=== PATIENT | male | born 1960 | race Caucasian/White ===

== ENCOUNTER 2017-05-28 07:05 | Emergency (ER) | payer BC ==
[2017-05-28 07:23] VITALS: BP 118/86
[2017-05-28] MEDS ORDERED: Amoxicillin/Clavulanate TAB* 875 MG PO ONE (07:29)
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
== END 2017-05-28 08:20 | disposition home or self-care (01) ==
LOC: UCEAST 07:05
DX: S61.451A Open bite of right hand, initial encounter (principal); W55.01XA Bitten by cat, initial encounter; Y92.9 Unspecified place or not applicable
CPT/HCPCS: 99212; A9270-GY; G0463

== ENCOUNTER 2018-08-22 06:41 | Emergency (ER) | payer BC ==
[2018-08-22] MEDS ORDERED: NS 0.9% 1000 ML** 1,000 ML IV ONE (07:19)
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
[2018-08-22 08:13] LABS: ABS Basophils 0.1 10^3/ul (0-0.2); ABS Eosinophils 0.3 10^3/ul (0-0.6); ABS Lymphocytes 1.5 10^3/ul (1.0-4.8); ABS Monocytes 0.5 10^3/ul (0-0.8); ABS Neutrophils 3.3 10^3/ul (1.5-7.7); ABS Nucleated RBC 0 10^3/ul; Hematocrit 44 % (36-46); Lymphocyte % 26.9 %; Mean Corpuscular HGB Conc 34 g/dL (31-36); Mean Corpuscular Hemoglobin 33 pg (27-31); Mean Corpuscular Volume 97 fL (80-94); Mean Platelet Volume 7.5 fL (7.4-10.4); Nucleated Red Blood Cells % 0; Platelet Count 303 10^3/uL (150-450); Red Blood Count 4.58 10^6 /uL (4.18-5.48); Red Cell Distribution Width 14 % (10.5-15); White Blood Count 5.8 10^3/uL (3.5-10.8)
[2018-08-22] MEDS ORDERED: Thiamine TAB* 100 MG TAB PO ONE (08:13)
[2018-08-22 08:33] LABS: ALT 20 U/L (7-52); Albumin 4.5 g/dL (3.2-5.2); Albumin/Globulin Ratio 1.1 (1-3); Alkaline Phosphatase 45 U/L (34-104); BUN/Creatinine Ratio 13.8 (8-20); Blood Urea Nitrogen 12 mg/dL (6-24); C Reactive Protein 2.94 mg/L (<8.01); CO2 Carbon Dioxide 21 mmol/L (22-32); Chloride 104 mmol/L (101-111); EGFR African American 109.8 (>60); EGFR Non-African American 90.8 (>60); Glucose 99 mg/dL (70-100); Sodium 129 mmol/L (135-145); Total Protein 8.5 g/dL (6.4-8.9); Troponin I 0.03 ng/mL (<0.04)
[2018-08-22 08:39] LABS: Alcohol < 10 mg/dL (<10)
[2018-08-22 08:48] LABS: Anion Gap 4 mmol/L (2-11)
[2018-08-22] MEDS ORDERED: Famotidine TAB* 20 MG PO ONE (09:00)
[2018-08-22] MEDS ORDERED: LORazepam INJ* 2 MG/ML 1 ML VIAL IV PUSH ONE (09:00)
[2018-08-22] MEDS ORDERED: Lorazepam PYXIS KEY ONE (09:18)
[2018-08-22 09:22] LABS: Potassium Redraw 4.4 mmol/L (3.5-5.0)
[2018-08-22 10:22] VITALS: BP 167/87
== END 2018-08-22 10:23 | disposition home or self-care (01) ==
LOC: ED 06:41
DX: R42 Dizziness and giddiness (principal); E87.1 Hypo-osmolality and hyponatremia; F17.210 Nicotine dependence, cigarettes, uncomplicated; F41.9 Anxiety disorder, unspecified; Z82.3 Family history of stroke; F32.9 Major depressive disorder, single episode, unspecified
CPT/HCPCS: 36415; 70450; 80053; 80320; 84484; 85025; 86140; 93005; 96361; 96374; 99285; A9270-GY; G0480; J2060

== ENCOUNTER 2018-11-21 07:29 | Inpatient (IN) | payer BC ==
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
[2018-11-21 08:12] LABS: ABS Eosinophils 0.2 10^3/ul (0-0.6); ABS Lymphocytes 1.3 10^3/ul (1.0-4.8); ABS Monocytes 0.7 10^3/ul (0-0.8); ABS Neutrophils 6.1 10^3/ul (1.5-7.7); Eosinophil % 2.4 %; Hematocrit 46 % (42-52); Hemoglobin 15.8 g/dL (14.0-18.0); Lymphocyte % 15.4 %; Mean Corpuscular HGB Conc 35 g/dL (31-36); Mean Corpuscular Hemoglobin 34 pg (27-31); Mean Corpuscular Volume 99 fL (80-94); Mean Platelet Volume 7.8 fL (7.4-10.4); Nucleated Red Blood Cells % 0.1; Platelet Count 248 10^3/uL (150-450); Red Blood Count 4.64 10^6 /uL (4.18-5.48); Red Cell Distribution Width 15 % (10-15); White Blood Count 8.3 10^3/uL (3.5-10.8)
[2018-11-21 08:16] LABS: Urine Appearance Cloudy; Urine Bacteria Absent (Absent); Urine Bilirubin Negative (Negative); Urine Blood 1+ (Negative); Urine Color Yellow; Urine Glucose Negative (Negative); Urine Ketones Trace (Negative); Urine Nitrite Negative (Negative); Urine Protein Negative (Negative); Urine Red Blood Cell Trace(0-2/hpf) (Absent); Urine Specific Gravity 1.009 (1.010-1.030); Urine Urobilinogen Negative (Negative); Urine White Blood Cell Trace(0-5/hpf) (Absent)
[2018-11-21 08:22] LABS: ALT 20 U/L (7-52); AST 27 U/L (13-39); Albumin 4.4 g/dL (3.2-5.2); Albumin/Globulin Ratio 1.2 (1-3); Alkaline Phosphatase 62 U/L (34-104); Anion Gap 9 mmol/L (2-11); BUN/Creatinine Ratio 11.8 (8-20); Blood Urea Nitrogen 13 mg/dL (6-24); CO2 Carbon Dioxide 24 mmol/L (22-32); Calcium 9.5 mg/dL (8.6-10.3); Chloride 105 mmol/L (101-111); EGFR African American 83.8 (>60); EGFR Non-African American 69.2 (>60); Globulin 3.7 g/dL (2-4); Glucose 99 mg/dL (70-100); Potassium 4.2 mmol/L (3.5-5.0); Sodium 138 mmol/L (135-145); Total Protein 8.1 g/dL (6.4-8.9)
[2018-11-21 08:28] LABS: Urine Benzodiazepine Screen None Detected (None Detect); Urine Opiates Screen None Detected (None Detect)
[2018-11-21 08:55] LABS: Acetaminophen < 15 mcg/mL; Alcohol < 10 mg/dL (<10); Salicylate < 2.50 mg/dL (<30)
[2018-11-21] MEDS ORDERED: Acetaminophen TAB* 325 MG PO PRN (08:58)
[2018-11-21] MEDS ORDERED: Al Hydrox/Mg Hydrox/Simet LIQ* 30 ML UDC PO PRN (08:58)
[2018-11-21] MEDS ORDERED: clonazePAM TAB(*) 1 MG PO SCH (09:00)
[2018-11-21] MEDS ORDERED: Venlafaxine EXT RELEASE CAP* 75 MG PO SCH (09:00)
[2018-11-21] MEDS ORDERED: hydrOXYzine HCL TAB* 50 MG PO PRN (09:00)
[2018-11-21 09:09] LABS: TSH (Thyroid Stimulating Horm) 1.06 mcIU/mL (0.34-5.60)
[2018-11-21] MEDS ORDERED: LORazepam TAB(*) 1 MG PO SCH (16:00)
[2018-11-21] MEDS: clonazePAM TAB(*) 0.5 MG PO PRN (17:58)
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
[2018-11-21] MEDS ORDERED: Mirtazapine TAB* 15 MG PO SCH (21:00)
[2018-11-22] MEDS: Thiamine TAB* 100 MG TAB PO SCH (08:13)
[2018-11-22] MEDS: Folic Acid TAB* 1 MG PO SCH (08:13)
[2018-11-22] MEDS: Venlafaxine EXT RELEASE CAP* 75 MG PO SCH (08:14)
[2018-11-22] MEDS: clonazePAM TAB(*) 0.5 MG PO PRN ×3 (08:16→20:18)
--- NOTE | 2018-11-22 12:07 | PN ---
Subjective - Subjective Date of Service: 11/22/18 Service Type: 04053 Hosp care 25 min moderate complexity Subjective: Patient reported active SI to staff during WA assessment and that he was looking for ways to hang himself in his room. He complied with request to remain in milieu. Upon approach, patient sitting in chair with head on table. He reports that he was talking to his , as she visited over lunch. He states that he started discussing going to counseling with his and she reacted angrily stating "you're going to have to talk to your mother. i'm not coming back." He reports frustration that she has not been affectionate or loving for the last 7-8 years and that she has been sleeping in her own bed for the past 3 years. He states frustration that she accuses him of cheating and that this is erroneous. He states that he spends time with friends who also race cars but that he made marriage vows and hold them dear. 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 He reports increase in alcohol use, as this "makes him happy." Objective - General Observations Appearance: Well Groomed Stature: WNL Posture: Slumped Eye Contact: Intermittent Behavior/Activity: Impulsive - Interaction Observations Attitude Towards Examiner: Cooperative Stated Mood: Dysphoric Affect: Full Speech Pattern/Tone: Clear, Appropriate, Normal Volume Thought Process: Circumstantial Perception: WNL Thought Content: Depressive, Self-Deprecatory Thought Process: Lethality: Suicidal Planning Hallucination Type: Denies Delusion Type: Denies - Cognitive Function Orientation: A&O x 4 Level of Consciousness: Alert Cognition: Impaired Attention/Concentration Estimated Intelligence: Normal Insight: Mostly Blames Others for Problems Judgment Within Normal Limits: No Ability to Make Reasonable Decisions: Serverely Impaired - Medication Compliance Cooperative with Inpatient Medication Regimen: Yes - Group Participation Participates in Group Activities: Partial Assessment - Assessment Merits Inpatient Hospitalization: For Immediate Safety, For Stabilization Inpatient DSM-V Dx: F10.14 Clinical Impression: 58yo white male, employed, domiciled, with one adult son, who presented to ED after and interrupted suicide attempt the night prior. He woke in the morning with continued SI and agreed to come to ED with his for evaluation. The patient is minimizing alcohol use and has been hiding it from family members. He merits hospitalization for immediate safety and stabilization. Plan - Plan Treatment Plan: Name: GISEL RABAGO Birthdate: 1960 [id number] continue acute intensive psychiatric treatment. remain on 15min checks. patient to complete SANTIAGO packet. continue [facility] for alcohol detox monitoring. obtain EKG. decrease mirtazapine to 15mg for better sleep effect. continue other medications. discharge planning to include family and outpatient providers. Continued Medication Management: Start Medication Medications: Current Medications Acetaminophen (Tylenol Tab*) 650 mg PO Q4H PRN PRN Reason: for pain; or Temp >101 F Al Hydrox/Mg Hydrox/Simethicone (Maalox Plus*) 30 ml PO Q4H PRN PRN Reason: INDIGESTION Clonazepam (Klonopin Tab(*)) 0.5 mg PO TID PRN PRN Reason: ANXIETY Last Admin: 11/22/18 08:16 Dose: 0.5 mg Folic Acid (Folvite Tab*) 1 mg PO DAILY [facility] Last Admin: 11/22/18 08:13 Dose: 1 mg Hydroxyzine HCl (Atarax Tab*) 50 mg PO Q6H PRN PRN Reason: ANXIETY Last Admin: 11/21/18 13:12 Dose: 50 mg Lorazepam (Ativan Tab(*)) 0 - 6 mg PO .PER [facility] PROTOCOL ADRIAN; Protocol Mirtazapine (Remeron Tab*) 30 mg PO BEDTIME [facility] Last Admin: 11/21/18 20:22 Dose: 30 mg Thiamine HCl (Vitamin B-1 Tab*) 100 mg PO DAILY [facility] Last Admin: 11/22/18 08:13 Dose: 100 mg Venlafaxine HCl (Effexor Xr Cap*) 225 mg PO DAILY [facility] Last Admin: 11/22/18 08:14 Dose: 225 mg - Discharge Plan Discharge Plan: Inpatient Hospitalization
[2018-11-22] MEDS: Mirtazapine TAB* 15 MG PO SCH (20:17)
[2018-11-23 06:59] LABS: HDL Cholesterol 99.5 mg/dL
[2018-11-23] MEDS: Thiamine TAB* 100 MG TAB PO SCH (08:30)
[2018-11-23] MEDS: Folic Acid TAB* 1 MG PO SCH (08:30)
[2018-11-23] MEDS: Venlafaxine EXT RELEASE CAP* 75 MG PO SCH (08:30)
[2018-11-23] MEDS: clonazePAM TAB(*) 0.5 MG PO PRN ×3 (08:32→20:11)
--- NOTE | 2018-11-23 15:10 | PN ---
Subjective - Subjective Date of Service: 11/23/18 Service Type: 31919 Hosp care 15 min low complexity Subjective: Gisel is seen in coverage for Bree Macias NP. Gisel is in an elevated mood and is hopeful about going home. He and his had an argument yesterday and she left in anger. She did return in the evening with Gisel's mother and their relationship still seems solid. Gisel doesn't accept that his drinking is problematic. He understands that he drinks more than is recommended, but he does not think that is a problem for him either psychiatrically or physically. He entered his 72-hour notice today and will likely be discharged tomorrow after a family meeting. Objective - General Observations Appearance: Neat Appears Stated Age: Yes Stature: Overweight Posture: WNL Eye Contact: Average Behavior/Activity: WNL - Interaction Observations Attitude Towards Examiner: Cooperative, Ingratiating Stated Mood: Euthymic Affect: Bright Speech Pattern/Tone: Clear Thought Process: Coherent Perception: WNL Thought Content: WNL Hallucination Type: None Delusion Type: None - Cognitive Function Orientation: A&O x 4 Level of Consciousness: Awake, Alert, Appropriate Cognition: WNL Estimated Intelligence: Normal Insight: Difficulty Acknowledging Presence of Psyciatric Problems Judgment Within Normal Limits: No Ability to Make Reasonable Decisions: Mildly Impaired - Medication Compliance Cooperative with Inpatient Medication Regimen: Yes - Group Participation Participates in Group Activities: Yes Assessment - Assessment Merits Inpatient Hospitalization: For Immediate Safety, For Discharge Planning Inpatient DSM-V Dx: F10.14 Clinical Impression: 58yo white male, employed, domiciled, with one adult son, who presented to ED after and interrupted suicide attempt the night prior. He woke in the morning with continued SI and agreed to come to ED with his for evaluation. The patient is minimizing alcohol use and has been hiding it from family members. He merits hospitalization for immediate safety and stabilization. Plan - Plan Treatment Plan: Name: GISEL RABAGO Birthdate: 1960 [id number] continue acute intensive psychiatric treatment. remain on 15min checks. patient to complete SANTIAG[facility] packet. continue [facility] for alcohol detox monitoring. obtain EKG. decrease mirtazapine to 15mg for better sleep effect. continue other medications. discharge planning to include family and outpatient providers. 11/23/18 discharge planning to continue Social work to arrange family meeting Medications: Current Medications Acetaminophen (Tylenol Tab*) 650 mg PO Q4H PRN PRN Reason: for pain; or Temp >101 F Al Hydrox/Mg Hydrox/Simethicone (Maalox Plus*) 30 ml PO Q4H PRN PRN Reason: INDIGESTION Clonazepam (Klonopin Tab(*)) 0.5 mg PO TID PRN PRN Reason: ANXIETY Last Admin: 11/23/18 12:39 Dose: 0.5 mg Folic Acid (Folvite Tab*) 1 mg PO DAILY [facility] Last Admin: 11/23/18 08:30 Dose: 1 mg Hydroxyzine HCl (Atarax Tab*) 50 mg PO Q6H PRN PRN Reason: ANXIETY Last Admin: 11/21/18 13:12 Dose: 50 mg Mirtazapine (Remeron Tab*) 15 mg PO BEDTIME [facility] Last Admin: 11/22/18 20:17 Dose: 15 mg Thiamine HCl (Vitamin B-1 Tab*) 100 mg PO DAILY [facility] Last Admin: 11/23/18 08:30 Dose: 100 mg Venlafaxine HCl (Effexor Xr Cap*) 225 mg PO DAILY [facility] Last Admin: 11/23/18 08:30 Dose: 225 mg
[2018-11-23] MEDS: Mirtazapine TAB* 15 MG PO SCH (20:11)
[2018-11-24 08:18] VITALS: BP 129/90
[2018-11-24] MEDS: Venlafaxine EXT RELEASE CAP* 75 MG PO SCH (08:20)
[2018-11-24] MEDS: Thiamine TAB* 100 MG TAB PO SCH (08:20)
[2018-11-24] MEDS: Folic Acid TAB* 1 MG PO SCH (08:20)
[2018-11-24] MEDS: clonazePAM TAB(*) 0.5 MG PO PRN (08:21)
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
== END 2018-11-24 11:30 | disposition home or self-care (01) | DRG 775 ==
LOC: ED 07:29 → BSU 08:59
PROVIDERS: ADMIT Psychiatry & Neurology Psychiatry; ATTEND Psychiatry & Neurology Psychiatry
DX: F10.14 Alcohol abuse with alcohol-induced mood disorder (principal); R45.851 Suicidal ideations; J30.2 Other seasonal allergic rhinitis; M46.90 Unspecified inflammatory spondylopathy, site unspecified; F41.9 Anxiety disorder, unspecified; F17.210 Nicotine dependence, cigarettes, uncomplicated; Y90.9 Presence of alcohol in blood, level not specified; F32.9 Major depressive disorder, single episode, unspecified; Z82.49 Family history of ischemic heart disease and other diseases of the circulatory system; Z82.3 Family history of stroke; Z88.1 Allergy status to other antibiotic agents; Z88.8 Allergy status to other drugs, medicaments and biological substances; Z82.61 Family history of arthritis; Z87.891 Personal history of nicotine dependence
CPT/HCPCS: 36415; 80053; 80061; 80307; 80320; 80329; 81003; 81015; 83036; 84443; 85025; 87086; 99222; 99232; 99238; 99284; A9270-GY; G0480

== ENCOUNTER 2019-06-13 11:52 | Emergency (ER) | payer BC ==
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
[2019-06-13] MEDS: NS 0.9% 1000 ML** 1,000 ML IV ONE ×2 (12:12→14:14)
[2019-06-13 12:18] LABS: ABS Eosinophils 0.3 10^3/ul (0-0.6); ABS Lymphocytes 2.2 10^3/ul (1.0-4.8); ABS Neutrophils 3.6 10^3/ul (1.5-7.7); Eosinophil % 4.3 %; Hematocrit 41 % (42-52); Hemoglobin 14.4 g/dL (14.0-18.0); Lymphocyte % 31.1 %; Mean Corpuscular HGB Conc 35 g/dL (31-36); Mean Corpuscular Hemoglobin 35 pg (27-31); Mean Corpuscular Volume 99 fL (80-94); Mean Platelet Volume 7.5 fL (7.4-10.4); Nucleated Red Blood Cells % 0.1; Platelet Count 245 10^3/uL (150-450); Red Blood Count 4.17 10^6 /uL (4.18-5.48); Red Cell Distribution Width 15 % (10-15); White Blood Count 7.1 10^3/uL (3.5-10.8)
[2019-06-13 12:38] LABS: Albumin 4.4 g/dL (3.2-5.2); Albumin/Globulin Ratio 1.3 (1-3); BUN/Creatinine Ratio 11.5 (8-20); Calcium 9.4 mg/dL (8.6-10.3); EGFR African American 74.1 (>60); EGFR Non-African American 61.2 (>60); Globulin 3.4 g/dL (2-4); Potassium 3.7 mmol/L (3.5-5.0); Total Bilirubin 0.5 mg/dL (0.2-1.0); Total Protein 7.8 g/dL (6.4-8.9)
[2019-06-13 12:39] LABS: Troponin I 0.02 ng/mL (<0.03)
--- OUTSIDE RECORDS SUMMARY | 2019-06-13 12:39 | XMS REPORT | Continuity of Care Document ---
:1960 External Reference #:[id number] Author Name Danuta Ho O.D. Address [address] [place] [id number] Care Team Providers Name Role Phone Ranjit Roca M.D. 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 Onset: 06/07/2019 Social History Type Date Description Comments Sex Unknown ETOH Use Occasionally consumes alcohol Tobacco Use Start: Unknown Light tobacco smoker (10 or fewer cigarettes/day) Recreational Drug Use Denies Drug Use Smoking Status Reviewed: 06/07/19 Light tobacco smoker (10 or fewer cigarettes/day) Allergies, Adverse Reactions, Alerts Active Allergies Reaction Severity Comments Date Keflex 06/07/2019 Adhesives 06/07/2019 Medications Active Medications SIG Qnty Indications Ordering Provider Date Desvenlafaxine Succinate one tablet daily Eliot Estrella ER M.D. 100mg Tablets ER 24HR Remeron prn Unknown 30mg Tablets Lorazepam Unknown 1mg Tablets Immunizations Description No Information Available Vital Signs Date Vital Result Comment 06/07/2019 11:59am BP Systolic 153 mmHg BP Diastolic 96 mmHg Heart Rate 73 /min Results Description No Information Available Procedures Description No Information Available Medical Devices Description No Information Available Encounters Description No Information Available Assessments Date Code Description Provider 06/07/2019 H53.2 Diplopia Danuta Ho O.D. Plan of Treatment Future Appointment(s):06/14/2019 11:15 am - Danuta Ho O.D. at Ranjit Bhardwaj MD, 06/07/2019 - Danuta Ho O.D.H53.2 DiplopiaNew Labs:CBC Auto Diff, Ordered: 06/07/19Erythrocyte Sed Rate, Ordered: 06/07/19C Reactive Protein , Ordered: 06/07/19Glucose, Ordered: 06/07/19Comments:Smoking can increase the risk of developing or worsening any eye related disease, as well as affect your overall health. If you are a smoker, we strongly recommend that you quit.If you are not a smoker, we strongly recommend that you do not start. If your symptoms worsen, please call the office to be seenFollow up:1 week or sooner as needed Functional Status Description No Information Available Mental Status Description No Information Available Referrals Description No Information Available
--- OUTSIDE RECORDS SUMMARY | 2019-06-13 12:39 | XMS REPORT | Continuity of Care Document ---
:1960 External Reference #:[id number] Author Name Danuta Ho O.D. (transmitted by agent of provider Eliazar Wilson) Address [address] [place] [id number] Care Team Providers Name Role Phone Ranjit Roca M.D. 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
[2019-06-13 15:33] VITALS: BP 149/73
== END 2019-06-13 15:32 | disposition home or self-care (01) ==
LOC: ED 11:52
DX: R55 Syncope and collapse (principal); I10 Essential (primary) hypertension; F41.9 Anxiety disorder, unspecified; F32.9 Major depressive disorder, single episode, unspecified; Z87.891 Personal history of nicotine dependence; Z79.899 Other long term (current) drug therapy; Z88.1 Allergy status to other antibiotic agents; Z88.7 Allergy status to serum and vaccine
CPT/HCPCS: 36415; 80053; 84484; 85025; 93005; 96360; 96361; 99283